=== PATIENT | male | born 1995 | race Caucasian/White ===

== ENCOUNTER 2022-02-14 12:10 | Emergency (ER) | payer SELFPAY ==
[2022-02-14 12:11] VITALS: BP 141/62; PULSE 105; RESP 14; TEMP 36.6; O2SAT 100
[2022-02-14 12:35] VITALS: BP 136/83; PULSE 99; RESP 18; O2SAT 95
[2022-02-14 12:35] LABS: Basophils # 0.1 10^3/uL (0.0-0.1); Basophils % 0.8 %; Eosinophils % 0.1 %; Hematocrit 51.1 % (42.0-52.0); Hemoglobin 18.3 g/dL (11.7-16.6); Lymphocytes # 2.1 10^3/uL (0.8-4.8); Lymphocytes % 14.6 %; Mean Corpuscular HGB Conc 35.8 g/dL (30.0-36.0); Mean Corpuscular Hemoglobin 32.2 pg (28.0-34.0); Mean Corpuscular Volume 89.8 fl (80-94); Mean Platelet Volume 10.4 fL (7.4-10.4); Monocytes # 0.7 10^3/uL (0.2-0.9); Neutrophils # 11.13 10^3/uL (1.8-7.7); Neutrophils % 78.7 %; Nucleated Red Blood Cells % 0 %; Platelet Count 391 10^3/cmm (130-400); Red Blood Count 5.69 10^6/uL (4.1-5.3); Red Cell Distribution Width 11.5 % (12.1-15.1); White Blood Count 14.2 10^3/uL (4.0-10.0)
--- NOTE | 2022-02-14 12:38 | W.ED.GENADLT ---
HPI - General Adult General: Chief complaint: General Medical Stated complaint: cramps, poss overheated Time Seen by Provider: 02/14/22 12:21 Source: patient Mode of arrival: ambulatory Limitations: no limitations History of Present Illness: Patient is a 26-year-old male who presents to ED today with a complaint of possible heat exhaustion. 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 He states he began experiencing cramps to his bilateral upper and lower extremities and felt lightheaded and dizzy. He states he has drank about a half of a liter of water today. He states he urinated once this morning when he woke up has not urinated since. Upon arrival to the emergency department the cramps have subsided. He does feel generally weak. He is not having any acute neurologic complaints. Onset (ago): hour(s) Associated symptoms: Deny chest pain, confusion, dyspnea, headache(s), malaise, nausea, rash, palpitations, syncope or vomiting Treatments prior to arrival: none Review of Systems Const: Reports: fatigue; Denies: fever(s), chills, body aches or malaise Eyes: Denies: change in vision or blurry vision Card: Reports: lightheadedness; Denies: chest pain, palpitations, irregular heart rhythm, edema, swelling of feet/ankles, syncope, pre-syncope, dyspnea on exertion, orthopnea, leg pain with exertion or acrocyanosis Resp: Denies: dyspnea GI: Denies: abdominal pain, nausea, vomiting or diarrhea : Denies: flank pain, dysuria or hematuria Musc: Reports: muscle cramps and muscle weakness; Denies: neck pain, back pain, extremity pain, extremity swelling, joint pain, joint swelling, joint redness, joint warmth, joint stiffness or limited range of motion Skin/Breast: Denies: rash Neuro: Reports: weakness in extremities; Denies: headache(s), numbness in extremities, sensory changes, lack of coordination, difficulty walking, frequent falls, confusion, behavioral changes, Slurred speech present, difficulty communicating thoughts or seizure-like activity PFS ED PFSH: Medical History Psychiatric care Social History (Reviewed 02/14/22 @ 12:57 by DIONICIO Smalls Smoking and tobacco status: former smoker Quit status (tobacco): has quit using tobacco Year quit tobacco: ? Second hand smoke exposure: No Physical Exam Const: COMMON NORMALS: no acute distress, average body habitus, patient oriented x3, no limitations, healthy appearing, alert and well nourished GENERAL APPEARANCE: cooperative ORIENTATION/CONSCIOUSNESS: Yes awake, Yes oriented to person, Yes oriented to place and Yes oriented to time OTHER: looks worn out/weak HENMT: COMMON NORMALS: normocephalic and atraumatic HEAD & SCALP: normal to inspection, normocephalic and atraumatic Eye: GENERAL EYE: appearance normal, both eyes and all related structures and normal light reflex DIRECT OPHTHALMOSCOPY: Yes normal light reflex Neck/C-Spine: COMMON NORMALS: full ROM, no lymphadenopathy and no meningeal signs Resp: COMMON NORMALS: normal respiratory effort and clear to auscultation bilaterally AUSCULTATION: clear to auscultation bilaterally Cardio: COMMON NORMALS: regular rate and regular rhythm RATE: regular rate RHYTHM: regular rhythm GI: COMMON NORMALS: Normal to inspection, nondistended, normoactive bowel sounds present, Soft to palpation, non-tender, No hepatosplenomegaly present and no masses PALPATION: Yes Soft to palpation and Yes No hepatosplenomegaly present Back/Pelvis: COMMON NORMALS: thoracic and lumbar spine normal to inspection, no thoracic nor lumbar tenderness and thoraco-lumbar ROM normal Extremity: COMMON NORMALS: normal to inspection, full ROM, capillary refill normal, no joint enlargement, no clubbing, cyanosis or edema, no calf tenderness and no pedal edema GENERAL: Yes normal exam except as noted Neuro: FELIBERTO COMA SCALE: document [facility] findings [place] coma scale eye opening: Spontaneous [place] coma scale verbal response: Orientated [place] coma scale motor response: Obey commands [place] coma scale total score: 15 COMMON NORMALS: patient oriented x3, CN's II-XII intact bilaterally, moves all extremities, no focal motor deficits, no sensory deficits noted and gait normal SENSORIUM/ORIENTATION: Yes alert, Yes oriented to person, Yes oriented to place and Yes oriented to time MENINGEAL SIGNS: Yes no meningeal signs SPEECH: speech normal GAIT: Yes Normal gait present MOTOR EXAM: 5/5 motor strength present throughout Skin: COMMON NORMALS: no rashes or lesions noted GENERAL SKIN EXAM: no rashes or lesions noted Course Vital Signs: Vital signs: Vital Signs Temperature 97.9 F 02/14/22 12:11 Pulse Rate 99 02/14/22 12:35 Respiratory Rate 12 02/14/22 13:38 Blood Pressure 143/62 02/14/22 13:38 Pulse Oximetry 100 02/14/22 13:38 MDM - General Adult Medical Decision Making Patient's vital signs are stable. He has no acute neurologic findings on exam. His labs overall show some findings consistent with mild to moderate dehydration. Patient was given 2 L of fluids here. He does feel better. Recommend rest over the next 48 hours as well as continuing to push fluids and replenish with electrolyte rich foods and fluids. Return to ED precautions given. Lab Data : 02/14/22 12:31 02/14/22 13:24 Laboratory Results WBC 14.2 10^3/uL (4.0-10.0) H 02/14/22 12:31 RBC 5.69 10^6/uL (4.1-5.3) H 02/14/22 12:31 Hgb 18.3 g/dL (11.7-16.6) H 02/14/22 12:31 Hct 51.1 % (42.0-52.0) 02/14/22 12:31 MCV 89.8 fl (80-94) 02/14/22 12:31 MCH 32.2 pg (28.0-34.0) 02/14/22 12:31 MCHC 35.8 g/dL (30.0-36.0) 02/14/22 12:31 RDW 11.5 % (12.1-15.1) L 02/14/22 12:31 Plt Count 391 10^3/cmm (130-400) 02/14/22 12:31 MPV 10.4 fL (7.4-10.4) 02/14/22 12:31 Neut % (Auto) 78.7 % 02/14/22 12:31 Lymph % (Auto) 14.6 % 02/14/22 12:31 [place] % (Auto) 5.0 % 02/14/22 12:31 Eos % (Auto) 0.1 % 02/14/22 12:31 Baso % (Auto) 0.8 % 02/14/22 12:31 Neut # (Auto) 11.13 10^3/uL (1.8-7.7) H 02/14/22 12:31 Lymph # (Auto) 2.1 10^3/uL (0.8-4.8) 02/14/22 12:31 [place] # (Auto) 0.7 10^3/uL (0.2-0.9) 02/14/22 12:31 Eos # (Auto) 0.0 10^3/uL (0.0-0.8) 02/14/22 12:31 Baso # (Auto) 0.1 10^3/uL (0.0-0.1) 02/14/22 12:31 Nucleated RBC % (auto) 0 % 02/14/22 12:31 Nucleated RBCs # 0.0 /100WBC 02/14/22 12:31 Sodium 136 mmol/L (136-145) 02/14/22 13:24 Potassium 3.4 mmol/L (3.5-5.1) L 02/14/22 13:24 Chloride 96 mmol/L (98-107) L 02/14/22 13:24 Carbon Dioxide 19 mmol/L (22-29) L 02/14/22 13:24 Anion Gap 24.4 (5-19) H 02/14/22 13:24 BUN 25 mg/dL (6-20) H 02/14/22 13:24 Creatinine 1.1 mg/dL (0.7-1.2) 02/14/22 13:24 GFR Calculation 82.2 mL/min (90-130) L 02/14/22 13:24 Glucose 102 mg/dL (65-115) 02/14/22 13:24 Calculated Osmolality 287 mOsm/kg (285-295) 02/14/22 13:24 Calcium 9.9 mg/dL (8.5-10.5) 02/14/22 13:24 Total Bilirubin 2.0 mg/dL (0.15-1.2) H 02/14/22 13:24 AST 18 U/L (0-40) 02/14/22 13:24 ALT 27 U/L (0-41) 02/14/22 13:24 Alkaline Phosphatase 101 IU/L (40-130) 02/14/22 13:24 Creatine Kinase 82 U/L (39-308) 02/14/22 13:24 Total Protein 7.6 g/dL (6.6-8.7) 02/14/22 13:24 Albumin 5.2 g/dL (3.5-5.2) 02/14/22 13:24 Globulin 2.4 g/dL (1.3-4.6) 02/14/22 13:24 Urine Color Yellow (Yellow) 02/14/22 14:00 Urine Appearance Clear (CLEAR) 02/14/22 14:00 Urine pH 6 (5-7) 02/14/22 14:00 Ur Specific [place] 1.015 (1.005-1.030) 02/14/22 14:00 Urine Protein 1+ (Negative) H 02/14/22 14:00 Urine Glucose (UA) Norm (Normal) 02/14/22 14:00 Urine Ketones 3+ (Negative) H 02/14/22 14:00 Urine Blood Neg (Negative) 02/14/22 14:00 Urine Nitrate Negative (Negative) 02/14/22 14:00 Urine Bilirubin 1+ (Negative) H 02/14/22 14:00 Urine Urobilinogen 1 mg/dL (Negative) H 02/14/22 14:00 Ur Leukocyte Esterase Negative (Negative) 02/14/22 14:00 Urine RBC None /hpf (0-2) 02/14/22 14:00 Urine WBC 5-10 /hpf (0-5) H 02/14/22 14:00 Ur Squamous Epith Cells 0-4 /hpf (0-5) H 02/14/22 14:00 Amorphous Sediment Not Reportable 02/14/22 14:00 Urine Bacteria None /hpf (NONE) 02/14/22 14:00 Discharge Plan Discharge Patient Disposition: Home Clinical Impression: Dehydration Heat exhaustion Qualifiers: Encounter type: initial encounter Qualified Code(s): T67.5XXA - Heat exhaustion, unspecified, initial encounter Condition: Stable Prescriptions: No Action bupropion HCl [Wellbutrin XL] 300 mg tablet extended release 24 hr 300 mg PO QAM Qty: 30 2RF Rx Instructions: rx on hold at [facility] bupropion HCl 150 mg tablet extended release 24 hr 150 mg PO DAILY 0RF trazodone 100 mg tablet 300 mg PO BEDTIME PRN (Reason: insomnia) 0RF Discharge Orders: Discharge ED (Routine); Ordered 02/14/22 Ordered By: Dorene Fuller Patient Instructions: Heat Cramps - Adult, Heat Exhaustion - Adult Coding Level of Care Code ED Court Worker for [employer] Fwd Exam Comprehensive
[2022-02-14] MEDS: sodium chloride 0.9% 1,000 ML 999 ML IV ×2 (12:39→14:03)
[2022-02-14 13:38] VITALS: BP 143/62; RESP 12; O2SAT 100
[2022-02-14 13:51] LABS: Alanine Aminotransferase 27 U/L (0-41); Albumin Level 5.2 g/dL (3.5-5.2); Alkaline Phosphatase 101 IU/L (40-130); Anion Gap 24.4 (5-19); Aspartate Amino Transferase 18 U/L (0-40); Blood Urea Nitrogen 25 mg/dL (6-20); Calcium 9.9 mg/dL (8.5-10.5); Carbon Dioxide 19 mmol/L (22-29); Chloride 96 mmol/L (98-107); Creatine Phosphokinase 82 U/L (39-308); Globulin 2.4 g/dL (1.3-4.6); Glomerular Filtration Rate 82.2 mL/min (90-130); Glucose 102 mg/dL (65-115); Osmolality Calculated 287 mOsm/kg (285-295); Potassium 3.4 mmol/L (3.5-5.1); Sodium 136 mmol/L (136-145); Total Protein 7.6 g/dL (6.6-8.7)
[2022-02-14 14:11] LABS: Add Urine Microscopic? YES; Bilirubin Urine 1+ (Negative); Blood Urine Neg (Negative); Glucose Urine UA Norm (Normal); Ketones Urine 3+ (Negative); Leukocyte Esterase Urine Negative (Negative); Nitrate Urine Negative (Negative); Protein Urine 1+ (Negative); Specific Gravity, Urine 1.015 (1.005-1.030); Urine Appearance Clear (CLEAR); Urine Color Yellow (Yellow); Urobilinogen Urine 1 mg/dL (Negative); pH Urine 6 (5-7)
[2022-02-14 14:17] LABS: Add Urine Culture? No; Squamous Epithelial Cell Urine 0-4 /hpf (0-5)
[2022-02-14 14:41] VITALS: BP 129/62; PULSE 79; RESP 12; O2SAT 100
== END 2022-02-14 14:41 | disposition home or self-care (01) ==
PROVIDERS: Emergency Provider Physician Assistant
DX: T67.5XXA Heat exhaustion, unspecified, initial encounter (principal); X30.XXXA Exposure to excessive natural heat, initial encounter
CPT/HCPCS: 80053; 81001; 82550; 85025; 96360; 96361; 99284; J7030

== ENCOUNTER → 2023-05-30 11:51 | Outpatient (BNVA) | payer OTHER, SELFPAY | PROVIDERS: Visit Provider Psychiatry & Neurology Psychiatry | DX: F41.1 Generalized anxiety disorder (principal) | CPT/HCPCS: 80061; 83036 ==

== ENCOUNTER → 2024-05-10 14:19 | Outpatient (BNVA) | payer BC, MEDICAID, SELFPAY ==
[2023-06-04 16:29] VITALS: BP 120/66; BMI 28.3
== END ==
PROVIDERS: Visit Provider Nurse Practitioner Family
DX: S61.012A Laceration without foreign body of left thumb without damage to nail, initial encounter (principal); X58.XXXA Exposure to other specified factors, initial encounter
CPT/HCPCS: 73130